=== PATIENT | male | born 1955 | race Caucasian/White ===

== ENCOUNTER 2024-08-11 00:03 | Outpatient (CLI) | payer MEDICARE, OTHER | END 2024-08-11 00:04 | disposition critical access hospital (66) | LOC: EMS 00:03 | DX: R55 Syncope and collapse (principal); R42 Dizziness and giddiness; R51.9 Headache, unspecified | CPT/HCPCS: A0425; A0427 ==

== ENCOUNTER 2024-08-11 00:43 | Emergency (ER) | payer MEDICARE, OTHER ==
[2024-08-11] MEDS: SODIUM CHLORIDE 0.9% 1,000 ML IV STA ×2 (01:05→15:19)
--- NOTE | 2024-08-11 01:05 | ED Physician Documentation ---
History of Present Illness - Stated complaint Stated Complaint: NEAR SYNCOPE, HYPOTENSION - History obtained from History obtained from: Patient - Additonal information Additional information: 69-year-old man with history of coronary artery disease status post MN with stents and CABG, CRF stage III, CVA without residual deficit, presents with near syncopal episode around 11 PM.Patient woke with a headache that was bilateral frontal, tried to get out of bed and became lightheaded then slumped to the floor without hitting his head. He took his blood pressure at home and his systolic blood pressure was in the 70s therefore he called EMS. Upon EMS arrival they found that his blood pressure was in the 80s. He was provided with IV fluids and then had improvement to 110 systolic. Patient complains of diffuse abdominal pain that is 3 out of 10, generalized as well as a bilateral frontal headache that is moderate in severity. Denies focal neurological deficit. Denies chest pain, shortness of breath, fever. He does have some [place]. PD PAST MEDICAL HISTORY - Present Medications Home Medications: Ambulatory Orders Medication Instructions Recorded Confirmed Aspirin [Nancy] 325 mg PO DAILY 08/11/24 08/11/24 Canagliflozin [Invokana] 100 mg PO DAILY 08/11/24 08/11/24 Clopidogrel Bisulfate [Plavix] 75 mg PO DAILY 08/11/24 08/11/24 Dasatinib [Sprycel] 50 mg PO DAILY 08/11/24 08/11/24 Escitalopram Oxalate 20 mg PO DAILY 08/11/24 08/11/24 Ezetimibe [Zetia] 10 mg PO DAILY 08/11/24 08/11/24 Metoprolol Succinate [Toprol Xl] 50 mg PO DAILY 08/11/24 08/11/24 Nitroglycerin [Nitrostat] 0.4 mg SL [id number] PRN 08/11/24 08/11/24 Pitavastatin Calcium [Livalo] 2 mg PO DAILY 08/11/24 08/11/24 - Allergies Allergies/Adverse Reactions: Allergies Allergy/AdvReac Type Severity Reaction Status Date / Time Penicillins Allergy Unknown Verified 08/11/24 00:51 PD ED PE NORMAL - Vitals Vital signs reviewed: Yes - General General: Alert and oriented X 3, No acute distress, Well developed/nourished - HEENT HEENT: Atraumatic, PERRL, EOMI, Moist mucous membranes, Pharynx benign - Neck Neck: Supple, no meningeal sign, No bony TTP, C-Spine cleared by NEXUS criteria - Cardiac Cardiac: RRR - Respiratory Respiratory: No respiratory distress, Clear bilaterally - Abdomen Abdomen: Non tender, Non distended - Back Back: No spinal TTP - Derm Derm: Normal color, Warm and dry - Neuro Neuro: Alert and oriented X 3, stereo operator 2-12 intact, No motor deficit, No sensory deficit, Normal speech Eye Opening: Spontaneous Motor: Obeys Commands Verbal: Oriented GCS Score: 15 - Psych Psych: Normal mood, Normal affect Results - Vitals Vitals: Vital Signs - 24 hr 08/11/24 00:45 Temperature 36.2 C L Heart Rate 64 Respiratory 16 Rate Blood Pressure 121/74 O2 Saturation 100 Oxygen O2 Source Room air - EKG (time done) 0101 EKG releavant findings:: EKG personally interpreted by author of this note. Relevant findings are: Rate: Rate (enter#) (62) Rhythm: NSR [place]: Normal Intervals: Prolonged VA (borderline 202) QRS: Poor R wave progression (QRS 106) Ischemia: Normal ST segments 0305 EKG releavant findings:: EKG personally interpreted by author of this note. Relevant findings are: Rate: Rate (enter#) (72) Rhythm: NSR Intervals: Other (VA 215) QRS: Poor R wave progression (IPF013) Ischemia: Other - Labs Labs: Laboratory Tests 08/11/24 08/11/24 08/11/24 01:11 01:11 01:11 WBC 14.3 H RBC 4.41 L Hgb 13.3 L Hct 41.1 L MCV 93.2 MCH 30.2 MCHC 32.4 RDW 12.8 Plt Count 256 MPV 9.7 Neut # (Auto) 11.2 H Lymph # (Auto) 2.0 [place] # (Auto) 1.0 Eos # (Auto) 0.1 Baso # (Auto) 0.1 Absolute Nucleated RBC 0.00 Nucleated RBC % 0.0 D-Dimer 267.3 H Sodium 142 Potassium 3.9 Chloride 112 H Carbon Dioxide 19 L Anion Gap 11.0 BUN 37 H Creatinine 1.7 H Estimated GFR (MDRD) 40 L Glucose 128 H Calcium 9.1 Total Bilirubin 0.3 AST 15 ALT 18 Alkaline Phosphatase 58 Troponin I High Sens 34.8 H* Total Protein 6.3 L Albumin 3.9 Globulin 2.4 Albumin/Globulin Ratio 1.6 Lipase 38 08/11/24 02:30 WBC RBC Hgb Hct MCV MCH MCHC RDW Plt Count MPV Neut # (Auto) Lymph # (Auto) [place] # (Auto) Eos # (Auto) Baso # (Auto) Absolute Nucleated RBC Nucleated RBC % D-Dimer Sodium Potassium Chloride Carbon Dioxide Anion Gap BUN Creatinine Estimated GFR (MDRD) Glucose Calcium Total Bilirubin AST ALT Alkaline Phosphatase Troponin I High Sens 146.7 H* Total Protein Albumin Globulin Albumin/Globulin Ratio Lipase PD Medical Decision Making - ED course ED course: 69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 He declines inciting factors but was found to be hypotensive in the field, responsive to fluids. Concern for cardiac cause for his syncope is limited, given that he did have preceding lightheadedness, more consistent with vasovagal episode. However he has strong cardiac history therefore cardiac workup was enacted. Neurologic exam is normal and patient refuses head CT, stating "the likelihood of CVA or internal bleeding is zero". Plan to provide IV reglan, PO tylenol and IV fluids then reevaluate the headache. Likely discharge home if two troponins are negative. He will need close follow up with his sheet metal layout worker, outpatient echocardiogram and possible zio monitoring. Note that troponin was mildly elevated in the 30s, possibly a renal troponin. plan to repeat in an hour to ensure it is stable and not uptrending. His age adjusted d-dimer is negative per mdcalc. 3am - decision made to transfer for NSTEMI. patient asymptomatic with improvement in headache. His sheet metal layout worker is Dr. Simmons at [facility]. [facility] called and they stated that it will likely be several days prior to transfer since they are full and boarding. We will attempt to contact his sheet metal layout worker. 3:15am - d/w [facility] and they decline transfer due to patient coding in the lab technologist. 3:37am - d/w ED MD Dr. Reynaldo Dorado who states if sheet metal layout worker Dr Luevano accepts in transfer then patient can go to [facility]. Departure - Departure Disposition: 02 Transfer Acute Care Hosp Clinical Impression: Dizziness, Headache, Syncope, NSTEMI (non-ST elevated myocardial infarction) Condition: Fair
[2024-08-11 01:15] LABS: BASOPHILS # (AUTO) 0.1 10^3/uL (0.0-0.1); BASOPHILS % (AUTO) 0.4 %; EOSINOPHILS # (AUTO) 0.1 10^3/uL (0.0-0.7); EOSINOPHILS % (AUTO) 0.8 %; HCT - HEMATOCRIT 41.1 % (42.0-52.0); HGB - HEMOGLOBIN 13.3 g/dL (14.0-18.0); LYMPHOCYTES % (AUTO) 13.7 %; MEAN CORPUSCULAR HEMOGLOBIN 30.2 pg (27.0-31.0); MEAN CORPUSCULAR HGB CONC 32.4 g/dL (32.0-36.0); MEAN CORPUSCULAR VOLUME 93.2 fL (80.0-94.0); MEAN PLATELET VOLUME 9.7 fL (7.4-11.4); MONOCYTES % (AUTO) 6.7 %; NEUTROPHILS # (AUTO) 11.2 10^3/uL (1.5-6.6); NEUTROPHILS % (AUTO) 78.2 %; PLT - PLATELET COUNT 256 10^3/uL (130-450); RED BLOOD COUNT 4.41 10^6/uL (4.70-6.10); RED CELL DISTRIBUTION WIDTH 12.8 % (12.0-15.0); WHITE BLOOD COUNT 14.3 x10^3/uL (4.8-10.8)
[2024-08-11] MEDS: ACETAMINOPHEN 325 MG TABLET PO STA (01:16)
[2024-08-11] MEDS: MORPHINE 2 MG/ML CARPUJECT IVP STA ×2 (01:17→10:40)
[2024-08-11] MEDS: METOCLOPRAMIDE 10 MG/2 ML VIAL IVP STA (01:21)
--- NOTE | 2024-08-11 01:26 | XRAY Report ---
PROCEDURE: Chest 1V INDICATIONS: Chest Pain TECHNIQUE: One view of the chest was acquired. COMPARISON: None. FINDINGS: Surgical changes and devices: Median sternotomy wires are seen. Fusion hardware in lower cervical sp ine is also noted. Lungs and pleura: No pleural effusions or pneumothorax. Lungs are clear. Mediastinum: Mediastinal contours appear normal. Heart size is normal. Bones and chest wall: No suspicious bony lesions. Overlying soft tissues appear unremarkable. IMPRESSION: No acute cardiopulmonary process. Reviewed by: Jose Li MD on 08/11/2024 1:25 AM PDT Approved by: Jose Li MD on 08/11/2024 1:25 AM PDT Station ID: [id number]
[2024-08-11 01:34] LABS: ALBUMIN 3.9 g/dL (3.2-5.5); ALBUMIN/GLOBULIN RATIO 1.6 (1.0-2.2); BILIRUBIN,TOTAL 0.3 mg/dL (0.2-1.0); CALCIUM 9.1 mg/dL (8.5-10.3); CREATININE 1.7 mg/dL (0.6-1.3); POTASSIUM 3.9 mmol/L (3.5-4.5); TOTAL PROTEIN 6.3 g/dL (6.4-8.9)
[2024-08-11 01:39] LABS: TROPONIN I HIGH SENSITIVITY 34.8 ng/L (2.3-19.7)
[2024-08-11] MEDS: ASPIRIN 325 MG TABLET PO STA (03:11)
[2024-08-11] MEDS: CLOPIDOGREL 300 MG TABLET PO STA (03:12)
[2024-08-11] MEDS: HEPARIN 25000UNITS/500ML (D5W) 25,000 UNIT/500 ML BAG IV SCH (03:19)
[2024-08-11] MEDS ORDERED: ONDANSETRON 4 MG/2 ML VIAL IVP PRN (04:19)
[2024-08-11] MEDS: PANTOPRAZOLE 40 MG TABLET PO SCH (06:26)
[2024-08-11 09:17] LABS: BASOPHILS # (AUTO) 0.1 10^3/uL (0.0-0.1); BASOPHILS % (AUTO) 0.5 %; EOSINOPHILS # (AUTO) 0.1 10^3/uL (0.0-0.7); EOSINOPHILS % (AUTO) 1.1 %; HCT - HEMATOCRIT 39.5 % (42.0-52.0); HGB - HEMOGLOBIN 12.6 g/dL (14.0-18.0); LYMPHOCYTES # (AUTO) 2.4 10^3/uL (1.5-3.5); LYMPHOCYTES % (AUTO) 22.2 %; MEAN CORPUSCULAR HEMOGLOBIN 30.4 pg (27.0-31.0); MEAN CORPUSCULAR HGB CONC 31.9 g/dL (32.0-36.0); MEAN CORPUSCULAR VOLUME 95.2 fL (80.0-94.0); MEAN PLATELET VOLUME 10.1 fL (7.4-11.4); MONOCYTES % (AUTO) 8.9 %; NEUTROPHILS # (AUTO) 7.3 10^3/uL (1.5-6.6); PLT - PLATELET COUNT 225 10^3/uL (130-450); RED BLOOD COUNT 4.15 10^6/uL (4.70-6.10); RED CELL DISTRIBUTION WIDTH 12.9 % (12.0-15.0); WHITE BLOOD COUNT 10.9 x10^3/uL (4.8-10.8)
[2024-08-11 09:33] LABS: CALCIUM 8.4 mg/dL (8.5-10.3); CREATININE 1.7 mg/dL (0.6-1.3); POTASSIUM 4.4 mmol/L (3.5-4.5)
--- NOTE | 2024-08-11 09:54 | ED Physician Documentation ---
ED Addendum - Addendum Addendum: 08/11/24 09:53 The patient is conversant. Denies chest pain overnight or this morning. Had cardiac diet without problems. He was starting to have some headache this morning and requested medication for that. He has Tylenol as needed which will be given. He also requested some stronger medicine. This is not unreasonable and we will give him some morphine. Still waiting to hear back from outlying facilities for bed availability.
[2024-08-11] MEDS: ACETAMINOPHEN 500 MG TABLET PO PRN (10:03)
[2024-08-11] MEDS: lisinopriL 5 MG TABLET PO SCH (10:03)
[2024-08-11] MEDS: METOPROLOL TARTRATE 25 MG TABLET PO SCH (10:03)
[2024-08-11] MEDS: ASPIRIN CHEW 81 MG TABLET PO SCH (10:04)
--- NOTE | 2024-08-11 13:28 | PHARMACY PROGRESS NOTE ---
- Best Possible Medication History Admit Date and Time: Processed by: Pharmacy Medications reviewed in ED?: Yes Patient Interview: Pt interview ONLY source As the person ultimately responsible for medication therapy, providers are able to order a medication from an existing home medication list in [facility] via the "Reconcile Routine" prior to Confirmation of that medication by computer support specialist. Such practice is discouraged except when the physician, in their clinical j udgment, deems that a medical need exists for a medication without regard to previous use.
[2024-08-11 15:21] LABS: MAGNESIUM 1.7 mg/dL (1.7-2.3)
[2024-08-11 15:27] LABS: ALBUMIN 3.5 g/dL (3.2-5.5); ALBUMIN/GLOBULIN RATIO 1.6 (1.0-2.2); BILIRUBIN,TOTAL 0.3 mg/dL (0.2-1.0); CALCIUM 8.5 mg/dL (8.5-10.3); CREATININE 1.7 mg/dL (0.6-1.3); POTASSIUM 4.7 mmol/L (3.5-4.5); TOTAL PROTEIN 5.7 g/dL (6.4-8.9)
--- NOTE | 2024-08-11 15:27 | XRAY Report ---
PROCEDURE: Chest 1V INDICATIONS: chest pain TECHNIQUE: One view of the chest was acquired. COMPARISON: Radiographs from earlier same day FINDINGS: Surgical changes and devices: Multiple median sternotomy wires are stable in appearance. Prior ACDF Lungs and pleura: No pleural effusions or pneumothorax. Lungs are clear. Mediastinum: Mediastinal contours appear normal. Heart size is normal. Bones and chest wall: No suspicious bony lesions. Overlying soft tissues appear unremarkable. IMPRESSION: Stable examination of the chest. No acute cardiopulmonary abnormalities. No focal consolidation. Reviewed by: Keegan Mello MD on 08/11/2024 2:26 PM SWETA Approved by: Keegan Mello MD on 08/11/2024 2:26 PM [id number] Station ID: [id number]
[2024-08-11 15:35] LABS: TROPONIN I HIGH SENSITIVITY 735.1 ng/L (2.3-19.7)
[2024-08-11 18:04] VITALS: BP 136/62; O2SAT 98
[2024-08-11] MEDS ORDERED: ATORVASTATIN 40 MG TABLET PO SCH (21:00)
[2024-08-12] MEDS ORDERED: METOPROLOL SUCCINATE 25 MG TABLET PO SCH (09:00)
== END 2024-08-11 17:48 | disposition short-term general hospital (02) ==
LOC: ED 00:43
DX: I21.4 Non-ST elevation (NSTEMI) myocardial infarction (principal); R00.1 Bradycardia, unspecified; Z75.1 Person awaiting admission to adequate facility elsewhere
CPT/HCPCS: 36415; 71045; 80048; 80053; 83690; 83735; 83880; 84484; 85025; 85379; 85730; 93005; 96361; 96374; 96375; 96376; 97110; 97161; 99285; A9270; J2765; 85027

== ENCOUNTER 2024-08-11 17:37 | Outpatient (CLI) | payer MEDICARE, OTHER | END 2024-08-11 23:59 | disposition short-term general hospital (02) | LOC: EMS 17:37 | PROVIDERS: ATTEND Emergency Medicine | DX: I21.4 Non-ST elevation (NSTEMI) myocardial infarction (principal) | CPT/HCPCS: A0425; A0426 ==